=== PATIENT | female | born 1985 | race African-American/Black ===

== ENCOUNTER 2017-01-31 09:13 | Emergency (ER) | payer OTHER ==
[~2017-01-31 09:13] MED LIST: AMBIEN10 MG PO; APAP/HYDROCODON1 T13 PO; CLARITIN10 MG PO; COL100 PO; NAPROSYN500 MG; NOR10T PO
[2017-01-31 10:36] VITALS: BP 146/93
== END 2017-01-31 10:36 | disposition home or self-care (01) ==
LOC: ED 09:13
DX: N93.9 Abnormal uterine and vaginal bleeding, unspecified (principal); R03.0 Elevated blood-pressure reading, without diagnosis of hypertension; G47.00 Insomnia, unspecified; Z88.8 Allergy status to other drugs, medicaments and biological substances

== ENCOUNTER 2017-02-09 14:12 | Emergency (ER) | payer OTHER ==
[~2017-02-09] VITALS: Ht 157.5 cm; Wt 82.5 kg
[2017-02-09 18:52] VITALS: BP 120/64
== END 2017-02-09 18:52 | disposition home or self-care (01) ==
LOC: ED 14:12
DX: N93.8 Other specified abnormal uterine and vaginal bleeding (principal)

== ENCOUNTER 2017-06-08 22:55 | Emergency (ER) | payer OTHER ==
[2017-06-09 01:22] VITALS: BP 123/70
== END 2017-06-09 01:22 | disposition home or self-care (01) ==
LOC: ED 22:55
DX: K21.9 Gastro-esophageal reflux disease without esophagitis (principal); G47.00 Insomnia, unspecified; Z88.6 Allergy status to analgesic agent
CPT/HCPCS: 36415; 36600

== ENCOUNTER 2017-09-14 15:31 | Emergency (ER) | payer OTHER ==
[~2017-09-14] VITALS: Ht 157.5 cm; Wt 80.3 kg
[2017-09-14 15:44] VITALS: Ht 157.5 cm; Wt 80.3 kg
[2017-09-14 16:42] VITALS: BP 128/87
== END 2017-09-14 16:42 | disposition home or self-care (01) ==
LOC: ED 15:31
DX: G89.29 Other chronic pain (principal); M54.5 Low back pain; M79.671 Pain in right foot; K21.9 Gastro-esophageal reflux disease without esophagitis; G47.00 Insomnia, unspecified; Z88.6 Allergy status to analgesic agent

== ENCOUNTER 2018-01-19 07:56 | Emergency (ER) | payer OTHER ==
[~2018-01-19] VITALS: Ht 170.2 cm; Wt 82.1 kg
[2018-01-19 08:10] VITALS: Ht 170.2 cm; Wt 82.1 kg
[2018-01-19 09:03] LABS: BASOPHIL % 0.7 % (0-2); PLATELET COUNT 326 x10^3mcL (130-400); RED CELL DISTRIBUTION WIDTH 14.2 % (11.5-14.5)
[2018-01-19 09:15] LABS: CARBON DIOXIDE 27.7 mmol/L (21-32); CHLORIDE SERUM 103 mmol/L (98-107); CREATININE SERUM 0.7 mg/dL (0.6-1.0); GFR1 > 60 mL/min; GLUCOSE SERUM 98 mg/dL (74-106); POTASSIUM SERUM 3.4 mmol/L (3.5-5.1); SODIUM SERUM 133 mmol/L (136-145)
[2018-01-19 09:20] LABS: ALBUMIN 3.9 g/dL (3.4-5.0); ALKALINE PHOSPHATASE 89 U/L (46-116); ALT/SGPT 18 U/L (14-59); AST/SGOT 16 U/L (15-37); BILIRUBIN TOTAL 0.38 mg/dL (0.20-1.00)
[2018-01-19 09:27] LABS: TOTAL PROTEIN, SERUM 8.4 g/dL (6.4-8.2)
[2018-01-19 10:36] VITALS: BP 127/92
== END 2018-01-19 10:36 | disposition home or self-care (01) ==
LOC: ED 07:56
PROVIDERS: Emergency Medicine
DX: J30.9 Allergic rhinitis, unspecified (principal); R53.1 Weakness; Z88.6 Allergy status to analgesic agent
CPT/HCPCS: 36415

== ENCOUNTER 2018-02-05 09:06 | Emergency (ER) | payer OTHER | END 2018-02-05 09:35 | disposition left against medical advice (07) | LOC: ED 09:06 | DX: Z53.21 Procedure and treatment not carried out due to patient leaving prior to being seen by health care provider (principal) ==

== ENCOUNTER 2018-05-06 01:55 | Emergency (ER) | payer OTHER ==
[~2018-05-06] VITALS: Ht 157.5 cm; Wt 81.4 kg
[2018-05-06 02:02] VITALS: BP 143/94; Ht 157.5 cm; Wt 81.4 kg
== END 2018-05-06 04:48 | disposition left against medical advice (07) ==
LOC: ED 01:55
DX: Z53.21 Procedure and treatment not carried out due to patient leaving prior to being seen by health care provider (principal)

== ENCOUNTER 2018-05-16 08:16 | Emergency (ER) | payer OTHER ==
[~2018-05-16] VITALS: Ht 160 cm; Wt 82.6 kg
[2018-05-16 08:30] VITALS: Ht 160 cm; Wt 82.6 kg
[2018-05-16 09:26] LABS: BASOPHIL % 0.9 % (0-2); PLATELET COUNT 365 x10^3mcL (130-400); RED CELL DISTRIBUTION WIDTH 14.1 % (11.5-14.5)
[2018-05-16 09:35] LABS: CALCIUM 8.7 mg/dL (8.5-10.1); CARBON DIOXIDE 24.8 mmol/L (21-32); CHLORIDE SERUM 105 mmol/L (98-107); CREATININE SERUM 0.8 mg/dL (0.6-1.0); GFR1 > 60 mL/min; GLUCOSE SERUM 92 mg/dL (74-106); POTASSIUM SERUM 3.3 mmol/L (3.5-5.1); SODIUM SERUM 138 mmol/L (136-145)
[2018-05-16 09:40] LABS: UA SPECIFIC GRAVITY >=1.030 (1.005-1.035); microscopic required? YES; urine erythrocyte 1+ (NEGATIVE)
[2018-05-16 09:40] LABS: ALKALINE PHOSPHATASE 99 U/L (46-116); ALT/SGPT 22 U/L (14-59); AMYLASE 70 U/L (25-115); AST/SGOT 16 U/L (15-37); BILIRUBIN TOTAL 0.47 mg/dL (0.20-1.00); LIPASE 154 IU/L (73-393); TOTAL PROTEIN, SERUM 8.8 g/dL (6.4-8.2)
[2018-05-16 10:53] VITALS: BP 146/96
== END 2018-05-16 10:53 | disposition home or self-care (01) ==
LOC: ED 08:16
PROVIDERS: Emergency Medicine
DX: K29.70 Gastritis, unspecified, without bleeding (principal); K21.9 Gastro-esophageal reflux disease without esophagitis; Z88.1 Allergy status to other antibiotic agents; Z90.49 Acquired absence of other specified parts of digestive tract
CPT/HCPCS: 36415

== ENCOUNTER 2019-06-11 14:49 | Emergency (ER) | payer OTHER ==
[~2019-06-11] VITALS: Ht 160 cm; Wt 81.6 kg
[2019-06-11 14:53] VITALS: Ht 160 cm; Wt 81.6 kg
[2019-06-11 16:26] VITALS: BP 137/93
== END 2019-06-11 16:26 | disposition home or self-care (01) ==
LOC: ED 14:49
DX: S83.91XA Sprain of unspecified site of right knee, initial encounter (principal); K21.9 Gastro-esophageal reflux disease without esophagitis; Z88.6 Allergy status to analgesic agent; Z98.890 Other specified postprocedural states; W18.30XA Fall on same level, unspecified, initial encounter; Y93.89 Activity, other specified; Y92.89 Other specified places as the place of occurrence of the external cause; Y99.8 Other external cause status